=== PATIENT | female | born 2000 | race Caucasian/White ===

== ENCOUNTER 2022-05-20 14:42 | Emergency (ER) | payer OTHER, MEDICAID, SELFPAY ==
[2022-05-20 14:43] VITALS: BP 147/96; PULSE 96; RESP 14; TEMP 36.1; O2SAT 96; BMI 36.8
[2022-05-20 16:00] VITALS: RESP 16
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
[2022-05-20] MEDS: Lidocaine 1% (20 ml mdv) 20 ML Vial INFILT (16:12)
== END 2022-05-20 16:44 | disposition home or self-care (01) ==
LOC: ED 16:30
PROVIDERS: Emergency Provider Emergency Medicine; PCP Family Medicine; Visit Provider Emergency Medicine
DX: S01.112A Laceration without foreign body of left eyelid and periocular area, initial encounter (principal); W22.8XXA Striking against or struck by other objects, initial encounter; E66.9 Obesity, unspecified
CPT/HCPCS: 12013; 99283

== ENCOUNTER 2022-07-11 08:30 | Outpatient (RCR) | payer MEDICAID, SELFPAY ==
--- NOTE | 2022-06-11 09:32 | HP.PTEVAL_ITS ---
Patient's Visit Information MISTY CAMPBELL is a 21 year old F referred to Physical Therapy by Dr. Jerome Milligan DO with a diagnosis of Cervical Strain. Date of Evaluation: 06/11/22 Physical Therapist: Laurie Kee DPT - Visit Plan Frequency: 2x /Week Duration: 4 Weeks Plan: Focus on Posture and cervical musculature stretching. HEP Given IE: Postural Education, Scapular Retractions, Upper Trap Stretch, Cervical Retractions - Subjective Patient reports that she has been having pain in both shoulders for about 5-6 months- insidious onset. Went to see the MD who reported she is having muscle spasms. The pain is located in the upper trap area bilaterally-pain does radiate down to the elbow only 1-2x a month-most days its up into the back of the cervical spine. Worst: 5/10 Agg: lifting. Eases: laying down and relaxing Best: 2/10. Reports the pain is more sharp. She does have some N/T in her fingers but that is only 1x a month and if she moves her fingers the N/T goes away. She feels that the pain is staying the same. She has had x-rays of her cervical spine but no other tests. Sleep: sometimes- if she is more active during the day it hurts to lay down. 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 She does not report blurred vision or dizziness. She has more LYLE if she is active-they are normally forehead and in the back- she has had LYLE prior. Right hand dominate. PMHx/Meds: No changes since saw Dr. Nance 06/03/22 - Objective Posture: FH, RS- can correct with tactile cues but is unable to maintain- poor posture in both sitting and standing. Gait: no deviation noted- good arm swing and trunk rotation. ROM: WFL in all planes of the cervical and UE-right rotation has increased discomfort. Palpation: tender along upper trap bilateral from AC joint to the occiput. Strength: Scap: poor, Shoulder: 5/5 throughout, Elbow: 5/5, Wrist: 5/5, Refuse Driver: WFL. Flex: UT: moderate, Levator: moderate - Special Tests C/S Radiculapathy - Left Spurlings: Positive C/S Radiculapathy - Right Spurlings: Positive C/S Radiculapathy - Left Cervical distraction: Negative C/S Radiculapathy - Right Cervical distraction: Negative - Balance/Special Test Scores Oswestry Neck Score: 19 - Goals Goal 1:: Patient will be I with HEP and progression Goal Time Frame: 4-6 Weeks Goal 2:: Patient will maintain proper posture t/o tx session to demo increased scap s/s. Goal Time Frame: 4-6 Weeks Goal 3:: Patient will report no LYLE for 1 week Goal Time Frame: 4-6 Weeks Goal 4:: Patient will report 80% improvement Goal Time Frame: 4-6 Weeks - Rehabilitation Potential Physical Therapy Diagnosis: Patient presents with hypomobility- she has decreased scapular strength/stabilization and muscular endurance leading to poor posture and increased pain with ADL's. Rehabilitation Potential: Good - Anticipated Interventions Patient/Client Instruction: Educate patient on: Benefits of Fitness Program Therapeutic Exercise to Include: Strength training, Endurance training, Balance training, Coordination, Agility training, Body mechanics, Postural training, Flexibilty training, Neuromotor development, Passive ROM, Active ROM, Dynamic Lumbar Stabilization, Scapular Strength/Stabilization For the Purpose of:: To improve muscle performance and motor function Manual Therapy Techniques to Include: Mobilization, Soft tissue mobilization TENS: Yes Cryotherapy (ice pack, ice massage): Yes Thermo therapy (hot pack): Yes Ultrasound (thermal/non thermal): Yes Thank you for the opportunity to evaluate your patient. For Medicare and Medicare HMO plans, please review the plan of care and approve it. It will need to be FAXED BACK to us at [phone] for Medicare purposes. For Medicare only, by signing this I certify the plan of care. Please let me know if there are questions or concerns regarding this plan of care. Physician Signature: Date:
--- NOTE | 2022-07-11 09:18 | HP.PTDCSUM_ITS ---
It has been my pleasure to treat MISTY CAMPBELL referred by Dr. Jerome Milligan DO, with the diagnosis of Cervical Strain for a total of 9 visit(s). Discharge Date: Please see the following information for a summary of their discharge status. Subjective: Patient reports that she is doing great, she was able to lift a couch and take it out on the floor yesterday at work without pain. The last time she had pain was about a week ago she is doing great. Bilateral Neck Pain Intensity (Out of 10): 0 % Improvement: 95 Objective/Function: Posture: fair in sitting and standing. Gait: no deviation noted- good arm swing and trunk rotation. ROM: WFL in all planes of the cer vical and UE-no pain Palpation: not tender Strength: Scap: fair, Shoulder: 5/5 throughout, Elbow: 5/5, Wrist: 5/5, Aquatics Instructor: WFL. Flex: UT: moderate, Levator: moderate Goal 1:: Patient will be I with HEP and progression Goal Progress: Goal Met Goal 2:: Patient will maintain proper posture t/o tx session to demo increased scap s/s. Goal Progress: Goal Met Goal 3:: Patient will report no LYLE for 1 week Goal Progress: Goal Met Goal 4:: Patient will report 80% improvement Goal Progress: Goal Met Plan: 07/11/22: Discharge to I HEP. Focus on Posture and cervical musculature stretching. HEP Given IE: Postural Education, Scapular Retractions, Upper Trap Stretch, Cervical Retractions If there are questions or concerns regarding this patient's physical therapy, please feel free to call me at [phone]. Thank you for the referral of this patient. Sincerely, Laurie Kee, DPT Balance/Gait/Functional tests - Balance/Special Test Scores Oswestry Neck Score: 0
== END 2022-07-11 10:33 | disposition home or self-care (01) ==
LOC: PT 08:30
PROVIDERS: PCP Family Medicine; Referring Provider Orthopaedic Surgery; Visit Provider Orthopaedic Surgery
DX: M62.838 Other muscle spasm (principal)
CPT/HCPCS: 97110; 97162; 97164

== ENCOUNTER → 2023-02-10 | Outpatient (CLI) | payer MEDICAID, SELFPAY ==
[2023-02-10 12:17] LABS: Absolute Lymphocyte Count 2.45 X10^3/uL (0.83-4.51); Absolute Neutrophil Count 5.1 X10^3/uL (2.0-7.7); Basophil# 0.07 X10^3/uL; Basophil% 0.8 % (0-1); Eosinophil# 0.12 X10^3/uL; Eosinophils% 1.4 % (0-5); Hematocrit 40.5 % (37-47); Hemoglobin 13.4 g/dL (12.0-15.0); Lymphocyte # 2.45 X10^3/ul (0.83-4.51); Lymphocyte % 28.6 % (19-41); Mean Corp Hgb Conc 33.1 g/dL (32-36); Mean Corpuscular Hgb 29.3 pg (27.0-32.0); Mean Corpuscular Volume 88.6 fL (81-99); Mean Platelet Vol. 9.4 fl (6.2-12.0); Monocyte# 0.83 X10^3/uL; Monocyte% 9.7 % (0-10); NRBC Flagged by Analyzer 0 % (0-5); Neutrophil # 5.05 X10^3/uL (2.7-7.7); Platelet Count 378 K/mm3 (150-450); RBC Distribution Width CV 11.3 % (11.6-14.6); RBC Distribution Width SD 35.9 fl (35.1-43.9); Red Blood Count 4.57 M/mm3 (4.2-5.4); White Blood Count 8.6 K/mm3 (4.4-11.0)
[2023-02-10 12:39] LABS: Internal QC Validated? YES +Cl - CLEAR BKGD; Pregnancy, Serum, hCG Quali. NEGATIVE Negative
[2023-02-10 13:06] LABS: AST(SGOT) 11 U/L (15-37); Alanine Aminotransfer ALT/SGPT 19 U/L (13-56); Albumin, Serum 3.7 g/dL (3.2-5.0); Alkaline Phosphatase 80 U/L (45-117); Anion Gap 6 (5-15); BUN 8 mg/dL (7-18); BUN/Creat Ratio 12.1 RATIO (10-20); CRP 4.74 mg/L (0.0-3.0); Calcium,Total 9.1 mg/dL (8.5-10.1); Chloride 106 mmol/L (98-107); Creatinine, Serum 0.66 mg/dL (0.55-1.02); EST Glomerular Filtration Rate 120 mL/min (>60); Est Glom Filt Rate - Afr Amer 145 mL/min (>60); Globulin 3.6 g/dL (2.2-4.2); Glucose 100 mg/dL (74-106); Lipase 30 U/L (13-75); Potassium 3.8 mmol/L (3.5-5.1); Protein, Total 7.3 g/dL (6.4-8.2); Sodium Level 139 mmol/L (136-145); T4 Free Direct 0.94 ng/dL (0.76-1.46); Thyroid Stim Hormone (TSH) 1.83 uIU/mL (0.358-3.74)
[2023-02-10 13:17] LABS: Hepatitis C Antibody Non-Reactive (Nonreactive)
[2023-02-12 07:08] LABS: QNTFERON TB Mitogen Value > 10.00 IU/mL (.); QNTFERON TB Nil Value 0.68 IU/mL (.); QNTFERON TB1+ Ag Value 0.66 IU/mL (.); QNTFERON TB2+ Ag Value 0.73 IU/mL (.); QNTIFERON TB Positive Criteria Negative (Negative)
== END | disposition home or self-care (01) ==
LOC: MFPLAB 11:03
PROVIDERS: PCP Family Medicine; Visit Provider Family Medicine
DX: R10.13 Epigastric pain (principal); R61 Generalized hyperhidrosis
CPT/HCPCS: 80053; 83690; 84439; 84443; 84703; 85025; 86140; 86480; 86803

== ENCOUNTER → 2023-02-14 | Outpatient (CLI) | payer MEDICAID, SELFPAY ==
--- NOTE | 2023-02-14 09:07 | US_ITS ---
STUDY: ABDOMINAL ULTRASOUND - RIGHT UPPER QUADRANT REASON FOR VISIT: Female, 22 years old ABDOMINAL PAIN TECHNIQUE: Ultrasound evaluation of the right upper quadrant was performed with real-time and static fernandez-scale imaging. TECHNICAL QUALITY: Adequate. COMPARISON: None. FINDINGS: Liver: The liver measures 14.7 cm. There is increased echogenicity consistent with fatty infiltration. The bile ducts are within normal limits. There is hepatic color flow. The direction of portal flow is hepatopetal. There is no demonstrated mass lesion. Gallbladder: Normal distended gallbladder. The gallbladder wall measures 1.9 mm. There is a negative sonographic Conner''s sign. There is no pericholecystic fluid. There are no gallstones. Common Bile Duct (C.B.D.): The common bile duct measures 4.0 mm. Pancreas: Normal size of the head, body and tail of the pancreas. There is normal echogenicity of the pancreas. There is no demonstrated pancreatic mass or cyst. Right Kidney: Normal size of the right kidney. The right kidney measures 12 cm x 5.7 cm x 4.5 cm. Normal renal cortex. The right cortex measures 1.8 cm. There is no demonstrated renal mass or cyst. There is no right hydronephrosis. US/Abdomen Limited IMPRESSION: Diffuse fatty infiltration of the liver. Electronically Signed: Jarocho Thomas MD at 14:59 EDT ,
== END | disposition home or self-care (01) ==
LOC: US 09:05
PROVIDERS: PCP Family Medicine; Referring Provider Family Medicine; Visit Provider Family Medicine
DX: R10.13 Epigastric pain (principal)
CPT/HCPCS: 76705

== ENCOUNTER 2024-07-13 11:38 | Emergency (ER) | payer SELFPAY ==
[2024-07-13 11:39] VITALS: BP 161/83; PULSE 109; RESP 16; TEMP 36; O2SAT 95; BMI 38.2
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
--- NOTE | 2024-07-13 15:24 | CT_ITS ---
PROCEDURE: SPINE LUMBAR WITHOUT CONTRAST REASON FOR EXAM: Lower back pain TECHNIQUE: Lumbar spine CT without contrast. CONTRAST: COMPARISON: None. FINDINGS: Vertebrae: Normal lumbar vertebral body heights. No evidence of fracture. No spondylolysis. Alignment: No spondylolisthesis. L1-2: Unremarkable. L2-3: Unremarkable. L3-4: Unremarkable. L4-5: Mild broad-based disc bulge with mild canal stenosis. L5-S1: Unremarkable. Sacrum: Visualized upper sacrum and SI joints are unremarkable. Visualized retroperitoneal structures are unremarkable. CT/Spine Lumbar without Contrast IMPRESSION: Mild broad-based disc bulge at the L4/5 level with mild canal stenosis One or more dose reduction techniques were used (e.g., Automated exposure contr ol, adjustment of the mA and/or kV according to patient size, use of iterative reconstruction technique). Reading Location: [facility]
[2024-07-13] MEDS: Ibuprofen 200 MG Tablet 400 MG PO (15:32)
[2024-07-13] MEDS: Acetaminophen 325 MG Tablet 650 MG PO (15:32)
[2024-07-13 16:00] VITALS: BP 150/78; PULSE 95; RESP 18; O2SAT 98
--- NOTE | 2024-07-13 16:10 | CT_ITS ---
PROCEDURE: SPINE THORACIC WITHOUT CONTRAS REASON FOR EXAM: Mid back pain TECHNIQUE: Thoracic spine CT without intravenous contrast. CONTRAST: COMPARISON: None. FINDINGS: Alignment: Normal. Bones: Normal thoracic vertebral heights. No acute fracture. No suspicious lytic or blastic lesion. Soft Tissues: Unremarkable paraspinal tissues. Other: Visualized portions of the lungs are unremarkable. CT/Spine Thoracic without Contras IMPRESSION: No acute or significant CT abnormality in the thoracic spine One or more dose reduction techniques were used (e.g., Automated exposure contr ol, adjustment of the mA and/or kV according to patient size, use of iterative reconstruction technique). Reading Location: [facility]
== END 2024-07-13 17:38 | disposition home or self-care (01) ==
PROVIDERS: Emergency Provider Emergency Medicine; PCP Family Medicine; Visit Provider Emergency Medicine
DX: S33.141A Dislocation of L4/L5 lumbar vertebra, initial encounter (principal); M25.511 Pain in right shoulder; V48.9XXA Unspecified car occupant injured in noncollision transport accident in traffic accident, initial encounter
CPT/HCPCS: 72128; 72131; 73030; 99282